=== PATIENT | male | born 1940 | race Caucasian/White ===

== ENCOUNTER 2017-01-23 16:04 | Outpatient (CLI) ==
[2015-08-16 23:20] VITALS: BMI 31.4
--- NOTE | 2017-01-23 16:31 | DI ---
EXAM: CHEST FRONTAL AND LATERAL VIEWS HISTORY: Wheezing. COMPARISON: 06/08/2015 FINDINGS: Heart size is within normal limits. There is mild to moderate aortic atherosclerosis. The re is diffuse, chronic appearing interstitial accentuation. No acute infiltrates are seen. No vascu lar congestion. There is no consolidation, visible pleural fluid or pneumothorax. Bones reveal no ac daryl fracture. IMPRESSION: No acute cardiopulmonary process.
== END 2017-01-23 16:05 | disposition home or self-care (01) ==
LOC: RAD 16:04
PROVIDERS: ATTEND Family Medicine
DX: R06.2 Wheezing (principal)

== ENCOUNTER 2017-05-22 09:57 | Outpatient (CLI) ==
[2015-08-16 23:20] VITALS: BMI 31.4
--- NOTE | 2017-05-22 22:31 | MRI ---
EXAM: Lumbar spine MRI without contrast. HISTORY: Chronic low back pain. COMPARISON: Lumbar spine MRI without contrast. TECHNIQUE: Multiplanar, multisequence MR images were acquired of the lumbar spine without contrast. FINDINGS: Five non-rib bearing lumbar vertebra are present. There is minor mid lumbar levoscoliosis centered at L3-4. The lumbar vertebra normal in height and intrinsic bone marrow signal. Small jerri tral and lateral osteophytes are present in the lumbar spine. There is desiccation of the interverte bral discs at L1-2 and from L3-4 to L5-S1. There is mild L2-3, L3-4 and L4-5, right lateral disc spa ce narrowing. At L5-S1, there is a minor diffuse disc osteophyte complex that is asymmetric to the l eft with mild left lateral disc space narrowing. Bone marrow signal is mildly heterogeneous with are as of fatty infiltration. Conus medullaris ends at L1 and has normal signal intensity. Canal diamet er is developmentally narrow. The aorta is ectatic with atherosclerosis. The partially visualized liver, spleen and kidneys are un remarkable. Bridging osteophytes are present along the anterior sacroiliac joints bilaterally. T12-L1: The intervertebral disc is normal. L1-2: There is a minimal disc bulge that is asymmetric to the left that narrows the inferior left ne ural foramen and encroaches on the left L1 nerve exiting neural foramen. Mild bilateral facet arthro cali and mild ligamentum flavum hypertrophy is present. There is minor right and mild left neural f oraminal stenosis. L2-3: There is a mild to moderate diffuse disc bulge that encroaches on both L2 nerves exiting the n eural foramina and mild bilateral hypertrophic facet arthropathy and ligamentum flavum hypertrophy. There is mild central canal stenosis and mild bilateral neural foraminal stenosis. AP diameter of the thecal sac is 8.5 mm. L3-4: There is a mild to moderate disc bulge that is asymmetric to the right with marginal osteophyt es and a probable small superimposed central and right paracentral disc protrusion. This effaces the ventral thecal sac and narrows the inferior neural foramina bilaterally. There is encroachment of t he right L4 nerve exiting the neural foramen. Mild bilateral hypertrophic facet arthropathy and liga mentum flavum hypertrophy is present. There is prominent dorsal epidural fat. This causes mild to m oderate central canal stenosis and mild to moderate bilateral neural foraminal stenosis, greater on t he right. L4-5: There is a mild to moderate diffuse disc bulge and bilateral hypertrophic facet arthropathy an d ligamentum flavum hypertrophy. This causes moderate central canal stenosis and bilateral foraminal stenosis. AP diameter of the thecal sac is 5.8 mm. L5-S1: There is a small disc bulge that is asymmetric posteriorly and to the left. Bilateral facet and ligamentum flavum hypertrophy is present and there are small right tiny left facet effusions. Ep idural fat produces moderate tapering of the thecal sac at this level and ends at S1-2. There is mil d left neural foraminal stenosis. AP diameter of the thecal sac is 5.6 mm. IMPRESSION: 1. Minor mid lumbar levoscoliosis centered at L3-4. 2. Mild lumbar degenerative spondylosis and mild to moderate hypertrophic facet arthropathy. 3. Mild L2-3, and mild to moderate L3-4 and moderate L4-5 central canal stenosis. 4. Mild to moderate bilateral L3-4 and moderate bilateral L4-5 neural foraminal stenosis.
== END 2017-05-22 09:58 | disposition home or self-care (01) ==
LOC: RAD 09:57
PROVIDERS: ATTEND Family Medicine
DX: M54.5 Low back pain (principal); G89.29 Other chronic pain

== ENCOUNTER 2017-08-16 15:03 | Outpatient (CLI) ==
[2015-08-16 23:20] VITALS: BMI 31.4
[2017-08-16] MEDS ORDERED: ZOFRAN 4 MG/2 ML IVP STA (15:16)
[2017-08-16] MEDS: SODIUM CHLORIDE 1,000 ML IV SCH ×2 (15:30→16:51)
[2017-08-16 15:44] VITALS: BP 133/74; TEMP 98.5
== END 2017-08-16 16:48 | disposition home or self-care (01) ==
LOC: OPMED 15:03
PROVIDERS: ATTEND Family Medicine
DX: R11.10 Vomiting, unspecified (principal); E86.0 Dehydration
CPT/HCPCS: 96360; 96361

== ENCOUNTER 2017-11-21 10:15 | Outpatient (CLI) ==
[2015-08-16 23:20] VITALS: BMI 31.4
--- NOTE | 2017-11-21 13:09 | CT ---
EXAM: CT lumbar spine without contrast. HISTORY: Acute left hip pain. COMPARISON: MRI 05/22/2017. TECHNIQUE: Multiple axial images of the lumbar spine were obtained without intravenous contrast. Im ages were reformatted in the sagittal and coronal planes. FINDINGS: The normal curvature and alignment are maintained. Vertebral body heights are normal. No fracture or subluxation is seen. There is moderate loss of disc height at L4-5 and mild loss of dis c height at L2-3 and L3-4. Adjacent soft tissues are unremarkable. T12-L1: Facet arthropathy without neural compromise. L1-2: Facet arthropathy with mild neural foraminal narrowing. L2-3: Disc osteophyte formation and facet arthropathy with mild to moderate central canal stenosis a nd mild to moderate neural foraminal narrowing. L3-4: Disc osteophyte formation, facet arthropathy and thickening of ligamentum flavum with mild to moderate central canal stenosis and mild to moderate neural foraminal narrowing. L4-5: Disc osteophyte formation, facet arthropathy and thickening of ligamentum flavum with moderate to severe central canal stenosis and mild to moderate neural foraminal narrowing. L5-S1: Disc osteophyte formation and facet arthropathy with mild neural foraminal narrowing IMPRESSION: 1. No fracture or subluxation. 2. Stable multilevel degenerative changes as described, greatest at L4-5.
--- NOTE | 2017-11-21 13:10 | CT ---
EXAM: CT pelvis without contrast HISTORY: Hip pain, acute, left COMPARISON: None TECHNIQUE: CT abdomen pelvis performed without intravenous contrast. Coronal and sagittal reformatt ed images obtained. FINDINGS: Moderate atherosclerosis. Small fat-containing periumbilical hernia. Prostate mildly enla rged. Small to moderate fat-containing right inguinal hernia and small fat-containing left inguinal hernia. Sacroiliac joints intact with mild degenerative change and mild bilateral bridging changes. Mild osteoarthritis of the right and left hip with joint space narrowing. Degenerative changes in t he spine. Please see separate report CT lumbar spine. IMPRESSION: 1. No fracture or dislocation. 2. Mild osteoarthritis of the hips. 3. Atherosclerosis.
== END 2017-11-21 10:16 | disposition home or self-care (01) ==
LOC: RAD 10:15
PROVIDERS: ATTEND Family Medicine
DX: M25.552 Pain in left hip (principal)

== ENCOUNTER 2018-02-12 11:14 | Outpatient (CLI) ==
[2015-08-16 23:20] VITALS: BMI 31.4
--- NOTE | 2018-02-12 13:39 | US ---
EXAM: Scrotal ultrasound HISTORY: Pain/swelling since 02/10/2018 COMPARISON: None TECHNIQUE: Scrotal ultrasound was performed FINDINGS: Right: Right testicle measures the 3.1 x 4.0 x 3.7 cm. Right testicle normal in echogenicity and va scularity. Right epididymis appears normal. Moderate right hydrocele. No right varicocele. Left: Left testicle measures 2.8 x 3.4 x 4.5 cm. Left testicle normal in echogenicity and vasculari ty. Suggestion of mild tubular ectasia left rete testes There are two left epididymal cysts and/or s permatocele, both measuring up to 2.1 cm. No left hydrocele or varicocele. IMPRESSION: 1. 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 Otherwise unremarkable appearance right and left testicle. 2. Two left epididymal cysts and/or spermatocele measuring up to 2.1 cm. 3. Moderate right hydrocele.
== END 2018-02-12 11:15 | disposition home or self-care (01) ==
LOC: RAD 11:14
PROVIDERS: ATTEND Family Medicine
DX: N50.82 Scrotal pain (principal); N50.89 Other specified disorders of the male genital organs

== ENCOUNTER 2018-02-26 21:28 | Emergency (ER) ==
[2018-02-26] MEDS ORDERED: DUONEB NEB STA (21:36)
[2018-02-26] MEDS ORDERED: DUONEB NEB ONE (21:36)
[2018-02-26 21:37] VITALS: BMI 34.4
[2018-02-26] MEDS ORDERED: LASIX IVP STA (21:38)
--- NOTE | 2018-02-26 23:07 | CT ---
EXAM: CT scan thorax without contrast HISTORY: Shortness of breath COMPARISON: CT scan thorax 08/16/2015 FINDINGS: Contiguous axial images obtained through the thorax without contrast utilizing 5-mm collim ation. Sagittal and coronal reconstructions were imaged and reviewed. The thoracic inlet is unremar kable. There are subcentimeter prevascular, pretracheal and subcarinal lymph nodes. Hilar structure s not well evaluated without contrast. The ascending aorta is ectatic measuring 3.4 cm. The cardiac silhouette is normal in size with coronary calcification and stents. There is no pericardial effusi on. There is mild bibasilar dependent atelectasis.. There are trace bilateral pleural effusions. M inimal ground-glass opacity is seen within the right middle lobe and lingula. There has been prior c holecystectomy. Degenerative changes are noted throughout the thoracic spine. IMPRESSION: Ectatic ascending aorta. Normal-sized cardiac silhouette with coronary calcification and stents. Trace bilateral pleural effusions with bibasilar atelectasis
--- NOTE | 2018-02-26 23:35 | ED.PDOC ---
General ED Provider: Dr. SUSHIL HERNANDEZ-ER Chief Complaint: Shortness of Air Stated Complaint: im sob --i cant lie down Time Seen by Physician: 23:33 Mode of Arrival: Wheelchair Information Source: Patient, Family Exam Limitations: No limitations Primary Care Provider: SUSHIL HERNANDEZ Nursing and Triage Documentation Reviewed and Agree: Yes Does patient meet sepsis criteria?: No System Inflammatory Response Syndrome: Not Applicable Sepsis Protocol: For patient's 13 years and over: Temp is 96.8 and below OR 101 and greater Pulse >90 BPM Resp >20/minute Acutely Altered Mental Status Are patient's symptoms suggestive of a new infection, such as: -Pneumonia -Skin, Soft Tissue -Endocarditis -UTI -Bone, Joint Infection -Implantable Device -Acute Abdominal Infection -Wound Infection -Meningitis -Blood Stream Catheter Infection -Unknown Respiratory Complaint Exam - Shortness of Air Complaint/Exam Onset/Duration: 2 hours Symptoms Are: Still present Timing: Constant Initial Severity: Mild Current Severity: Moderate Character: Reports: Dyspnea at rest Alleviating: Reports: Oxygen Associated Signs and Symptoms: Reports: Rapid breathing, Labored breathing History of Healthcare-Acquired Pneumonia: No Pseudomonas Risk Factors: Reports: Chronic Lung Disease Home Oxygen Use: No Recent Stress Test: No Recent Echo/LV Function: No Respiratory Distress: None Stridor Present: No Tracheal Deviation: No Subcutaneous Emphysema: No Accessory Muscle Use: Yes Diminished Breath Sounds: Yes Prolonged Expiratory Phase: No Unable to Speak Full Sentences: No Fatigue: No Leg Swelling: No Sherice's Sign Present: No Grunting Respirations: No Kussmaul Respirations: No Quality Indicator For Non-Traumatic Chest Pain/Syncope: EKG Performed Review of Systems - Review Of Systems Constitutional: Reports: No symptoms Eyes: Reports: No symptoms Ears, Nose, Mouth, Throat: Reports: No symptoms Respiratory: Reports: Cough, Short of air Cardiac: Reports: No symptoms GI: Reports: No symptoms : Reports: No symptoms Musculoskeletal: Reports: No symptoms Skin: Reports: No symptoms Neurological: Reports: No symptoms, Anxiety Endocrine: Reports: No symptoms Hematologic/Lymphatic: Reports: No symptoms All Other Systems: Reviewed and Negative Past Medical History - Past Medical History Previously Healthy: No Endocrine: Reports: DM 2, Dyslipidemia Cardiovascular: Reports: CAD, Hypertension, A-Fib Respiratory: Reports: COPD Hematological: Reports: Anemia Gastrointestinal: Reports: None Genitourinary: Reports: CKD Neuro/Psych: Reports: None Musculoskeletal: Reports: Arthritis Cancer: Reports: None - Surgical History General Surgical History: Reports: Stent - Family History Family History: Reports: Unknown - Social History Smoking Status: Current every day smoker Hx Substance Use: No Alcohol Screening: None Lives: With family - Immunizations Tetanus Shot up to Date: No (unsure) Physical Exam - Physical Exam Appearance: Well-appearing, No pain distress, Well-nourished Eyes: DEE DEE, EOMI, Conjunctiva clear ENT: Ears normal, Nose normal, Oropharynx normal Neck: Supple Respiratory: Crackles Cardiovascular: Irregular rhythm, Tachycardia GI/: Soft, Nontender, No masses, Bowel sounds normal, No Organomegaly Musculoskeletal: Normal strength, ROM intact, No edema, No calf tenderness Skin: Warm, Dry, Normal color Neurological: Sensation intact Psychiatric: Affect appropriate, Mood appropriate Interpretation - Radiology Interpretation Radiology Interpretation By: Radiologist Radiology Results: Positive Exam Interpreted: CT Scan - EKG Interpretation Time of EKG #1: 23:36 Rate: Tachy Rhythm: Other Ectopy: None Shepherd: NL ST Segment: Normal Interpretation: afib w Critical Care Note - Critical Care Note Total Time (mins): 0 Course - Course Hematology/Chemistry: 02/26/18 21:53 02/26/18 21:53 Orders, Labs, Meds: Lab Review 02/26/18 02/26/18 02/26/18 21:34 21:53 21:53 WBC 10.10 RBC 4.10 L Hgb 13.0 L Hct 38.5 L MCV 93.9 MCH 31.7 H MCHC 33.8 RDW Coeff of Pamela 15.0 H Plt Count 124 L Immature Gran % (Auto) 0.5 Neut % (Auto) 60.2 Lymph % (Auto) 23.4 [place] % (Auto) 7.7 Eos % (Auto) 7.4 H Baso % (Auto) 0.8 Immature Gran # (Auto) 0.1 Neut # (Auto) 6.1 Lymph # (Auto) 2.4 [place] # (Auto) 0.8 Eos # (Auto) 0.8 H Baso # (Auto) 0.1 D-Dimer (Manual) Puncture Site Lrad O2 Saturation 95.0 ABG pH 7.432 ABG pCO2 35.2 ABG pO2 71.0 L ABG HCO3 23.4 ABG Total CO2 24 ABG Base Excess -1 Preet Test + FiO2 % 21.0 Sodium 136.2 L Potassium 5.26 H Chloride 106.6 Carbon Dioxide 26.6 Anion Gap 8.26 BUN 27.5 H Creatinine 1.44 H Estimated GFR (MDRD) 48.00 BUN/Creatinine Ratio 19.09 Glucose 161.6 H Calcium 8.24 L Total Bilirubin 0.58 AST 62.3 H ALT 32.0 Alkaline Phosphatase 236.0 H Total Creatine Kinase 104.7 Troponin I 0.027 NT-Pro-B Natriuret Pep 2020.000 H Total Protein 6.72 Albumin 3.46 L Globulin 3.26 Albumin/Globulin Ratio 1.06 02/26/18 21:53 WBC RBC Hgb Hct MCV MCH MCHC RDW Coeff of Pamela Plt Count Immature Gran % (Auto) Neut % (Auto) Lymph % (Auto) [place] % (Auto) Eos % (Auto) Baso % (Auto) Immature Gran # (Auto) Neut # (Auto) Lymph # (Auto) [place] # (Auto) Eos # (Auto) Baso # (Auto) D-Dimer (Manual) 1808.45 Puncture Site O2 Saturation ABG pH ABG pCO2 ABG pO2 ABG HCO3 ABG Total CO2 ABG Base Excess Preet Test FiO2 % Sodium Potassium Chloride Carbon Dioxide Anion Gap BUN Creatinine Estimated GFR (MDRD) BUN/Creatinine Ratio Glucose Calcium Total Bilirubin AST ALT Alkaline Phosphatase Total Creatine Kinase Troponin I NT-Pro-B Natriuret Pep Total Protein Albumin Globulin Albumin/Globulin Ratio Orders Category Date Time Status ABG DRAW REQUEST Stat CARDIO 02/26/18 21:34 Completed EKG-(ED ONLY) Stat CARDIO 02/26/18 21:34 Completed NEBULIZER TREATMENT Stat CARDIO 02/26/18 21:36 Completed Bladder Scan [ED BLADDER SCAN] .ONCE EMERGENCY 02/26/18 21:38 Active Equal Opportunity Officer [ED TANK TRUCK LOADER APPLIED] .ONCE EMERGENCY 02/26/18 21:35 Active IV [ED IV/MEDIPORT/POWERPORT] .ONCE EMERGENCY 02/26/18 21:38 Active ABG Stat LAB 02/26/18 21:34 Completed CBC W/ AUTO DIFF Stat LAB 02/26/18 21:53 Completed COMPREHENSIVE METABOLIC PANEL Stat LAB 02/26/18 21:53 Completed CREATINE KINASE Stat LAB 02/26/18 21:53 Completed D-DIMER Stat LAB 02/26/18 21:53 Completed NT-PROBNP Stat LAB 02/26/18 21:53 Completed TROPONIN I Stat LAB 02/26/18 21:53 Completed 0.9 % Sodium Chloride [Saline Flush] MEDS 02/26/18 21:38 Ordered 1 syr IVF PRN PRN Furosemide [Lasix] MEDS 02/26/18 21:38 Discontinued 20 mg IVP ONCE STA Ipratropium/Albuterol Neb [Duoneb] MEDS 02/26/18 21:36 Discontinued 1 vial NEB .STK-MED ONE Ipratropium/Albuterol Neb [Duoneb] MEDS 02/26/18 21:36 Discontinued 1 vial NEB ONCE STA CT CHEST W/O CONTRAST Stat RADS 02/26/18 21:39 Completed Medications Generic Name Dose Route Start Last Admin Trade Name Freq PRN Reason Stop Dose Admin Sodium Chloride 1 syr 02/26/18 21:38 Saline Flush IVF PRN PRN To flush IV Discontinued Medications Generic Name Dose Route Start Last Admin Trade Name Freq PRN Reason Stop Dose Admin Albuterol/Ipratropium 1 vial 02/26/18 21:36 02/26/18 21:35 Duoneb NEB 02/26/18 21:37 Not Given ONCE STA Furosemide 20 mg 02/26/18 21:38 02/26/18 21:54 Lasix IVP 02/26/18 21:39 20 mg ONCE STA Administration Vital Signs: Temp Pulse Resp BP Pulse Ox 02/26/18 21:29 99.5 F 124 H 17 112/71 88 L Departure - Departure Time of Disposition: 23:36 Disposition: TSF SHORT-TRM HOSP Discharge Problem: Hypoxia Volume overload Qualifiers: Hypervolemia type: unspecified Qualified Code(s): E87.70 - Fluid overload, unspecified Atrial fibrillation Qualifiers: Atrial fibrillation type: paroxysmal Qualified Code(s): I48.0 - Paroxysmal atrial fibrillation Condition: Good Pt referred to PMD for follow-up: Yes IPMP verified?: No Allergies/Adverse Reactions: Allergies No Known Allergies Allergy (Verified 02/26/18 21:37) Home Medications: Ambulatory Orders Amlodipine Besylate [Norvasc] 10 mg PO DAILY 10/05/13 Aspirin [Aspirin EC] 81 mg PO DAILYWM 10/05/13 Lisinopril [Zestril] 10 mg PO DAILY 06/07/14 Sotalol HCl [Sotalol] 80 mg PO BID 10/05/13 Colestipol HCl [Colestid] 1 gm PO BID 06/08/15 Sitagliptin Phosphate [Januvia] 100 mg PO DAILY 06/08/15 Pregabalin [Lyrica] 150 mg PO BID 02/26/18 Tamsulosin HCl [Flomax] 0.4 mg PO BID 02/26/18 Transfer Form Completed: Yes Disposition Discussed With: Patient, Family
[2018-02-26 23:54] VITALS: BP 110/79; TEMP 98.9
== END 2018-02-27 00:13 | disposition short-term general hospital (02) ==
LOC: ED 21:28
DX: E87.70 Fluid overload, unspecified (principal); I48.0 Paroxysmal atrial fibrillation; R09.02 Hypoxemia; R06.02 Shortness of breath; E11.9 Type 2 diabetes mellitus without complications; E78.5 Hyperlipidemia, unspecified; I25.10 Atherosclerotic heart disease of native coronary artery without angina pectoris; I10 Essential (primary) hypertension; N18.9 Chronic kidney disease, unspecified; D63.1 Anemia in chronic kidney disease; J44.9 Chronic obstructive pulmonary disease, unspecified; F17.210 Nicotine dependence, cigarettes, uncomplicated; Z79.899 Other long term (current) drug therapy
CPT/HCPCS: 36415; 80053; 82550; 82803; 83880; 84484; 85025; 85379; 93005; 93010; 94640; 96374; 99285

== ENCOUNTER 2018-06-20 11:51 | Outpatient (CLI) ==
--- NOTE | 2018-06-20 14:19 | DI ---
EXAM: Two views of the chest. History: Short of breath Findings: Heart is enlarged. Bibasilar consolidation and small to moderate bilateral pleural effusi ons. No pneumothorax. Atherosclerotic vascular calcifications. Interstitial edema. No acute osseo us abnormalities. Impression: 1. Cardiomegaly with interstitial edema and small to moderate bilateral pleural effusions. 2. Bibasilar pneumonia
== END 2018-06-20 11:52 | disposition home or self-care (01) ==
LOC: RAD 11:51
PROVIDERS: ATTEND Family Medicine
DX: R06.02 Shortness of breath (principal)

== ENCOUNTER 2018-09-06 12:28 | Outpatient (CLI) ==
[2018-09-06 12:49] VITALS: BP 119/6; TEMP 97.5
[2018-09-06] MEDS ORDERED: BUMEX IVP STA (13:16)
== END 2018-09-06 12:29 | disposition home or self-care (01) ==
LOC: OPMED 12:28
PROVIDERS: ATTEND Family Medicine
DX: I50.30 Unspecified diastolic (congestive) heart failure (principal)
CPT/HCPCS: 96374

== ENCOUNTER 2018-09-07 12:23 | Outpatient (CLI) ==
[2018-09-07] MEDS ORDERED: BUMEX IVP STA (12:35)
[2018-09-07 12:41] VITALS: BP 133/68; TEMP 97.4
== END 2018-09-07 12:55 | disposition home or self-care (01) ==
LOC: OPMED 12:23
PROVIDERS: ATTEND Family Medicine
DX: I50.30 Unspecified diastolic (congestive) heart failure (principal)
CPT/HCPCS: 96375

== ENCOUNTER 2018-10-07 14:09 | Outpatient (CLI) | END 2018-10-07 14:28 | disposition short-term general hospital (02) | LOC: AMBL 14:09 | PROVIDERS: ATTEND Family Medicine | DX: R41.0 Disorientation, unspecified (principal); I48.91 Unspecified atrial fibrillation; Z99.81 Dependence on supplemental oxygen ==